=== PATIENT | male | born 1985 ===

== ENCOUNTER 2019-02-07 17:25 | Outpatient (REF) | payer MEDICAID, SELFPAY ==
[2019-02-07 22:12] LABS: Abs Immature Grans 0.01 k/cumm (0.0-0.09); Absolute Basophil Count 0.03 k/cumm (0.0-0.2); Absolute Eosinophil Count 0.47 k/cumm (0.0-0.7); Absolute Lymphocyte Count 2.55 k/cumm (1.2-3.4); Absolute Monocyte Count 0.55 k/cumm (0.11-0.7); Absolute Neutrophil Count 2.96 k/cumm (1.2-6.7); Basophils % 0.5; Eosinophils % 7.2; HGB 14.1 g/dL (13.5-17.5); Immature Grans % 0.2; Lymphocytes % 38.8; Mean Corp. HGB Concentration 32.8 g/dL (32.0-36.0); Mean Corpuscular Hemoglobin 30.7 pg (27.0-33.0); Mean Corpuscular Volume 93.7 fL (80-95); Mean Platelet Volume 10.6 fL (8.0-11.0); Monocytes % 8.4; Neutrophils % 44.9; Platelet Count 191 x1000/uL (130-400); RBC 4.59 m/cumm (4.50-6.00); RBC Distribution Width 13.6 % (11.8-14.1); White Blood Cell Count 6.57 k/cumm (4.4-10.8)
[2019-02-07 23:16] LABS: Vitamin D 25 Total 31.9 ng/ml (30-100)
[2019-02-07 23:22] LABS: ALT 36 U/L (16-63); AST 25 U/L (15-37); Albumin 4.5 g/dL (3.4-5.0); Alkaline Phosphatase 69 U/L (46-116); Anion Gap 9.7 mmol/L (3-11); BUN 13 mg/dL (7-18); Bilirubin, Total 1.1 mg/dL (0.2-1.0); CO2 29.3 mmol/L (21.0-32.0); CREATININE 0.91 mg/dL (0.70-1.30); Calcium 9.1 mg/dL (8.5-10.1); Chloride 102 mmol/L (98-107); Folate 10.9 ng/mL (8.6-20.0); Glucose 78 mg/dL (70-100); Potassium 3.9 mmol/L (3.5-5.1); Sodium 141 mmol/L (136-145); Total Protein 7.8 g/dL (6.4-8.2); Vitamin B12 427 pg/mL (193-986)
== END 2019-02-07 17:45 ==
LOC: NCHCN 17:25
PROVIDERS: Visit Provider Family Medicine
DX: F10.10 Alcohol abuse, uncomplicated (principal); F41.9 Anxiety disorder, unspecified; F34.1 Dysthymic disorder
CPT/HCPCS: 80053; 82306; 82607; 82746; 83735; 84443; 85025

== ENCOUNTER 2019-09-26 19:25 | Outpatient (REF) | payer MEDICAID, SELFPAY ==
[2019-09-26 20:34] LABS: HCT 42.7 % (40.0-50.0); HGB 14.5 g/dL (13.5-17.5); Mean Corpuscular Hemoglobin 31.2 pg (27.0-33.0); Mean Corpuscular Volume 91.8 fL (80-95); Mean Platelet Volume 10.6 fL (8.0-11.0); Platelet Count 227 x1000/uL (130-400); RBC 4.65 m/cumm (4.50-6.00); RBC Distribution Width 13.2 % (11.8-14.1); White Blood Cell Count 8.11 k/cumm (4.4-10.8)
[2019-09-26 21:07] LABS: ALT 25 U/L (16-63); AST 23 U/L (15-37); Albumin 4.1 g/dL (3.4-5.0); Alkaline Phosphatase 77 U/L (46-116); Anion Gap 12.3 mmol/L (3-11); BUN 10 mg/dL (7-18); Bilirubin, Total 1.1 mg/dL (0.2-1.0); CO2 23.7 mmol/L (21.0-32.0); CREATININE 0.95 mg/dL (0.70-1.30); Calcium 9.2 mg/dL (8.5-10.1); Chloride 103 mmol/L (98-107); Folate 18.5 ng/mL (8.6-20.0); Glucose 93 mg/dL (74-106); Sodium 139 mmol/L (136-145); Total Protein 7.5 g/dL (6.4-8.2)
== END 2019-09-26 19:45 ==
LOC: NCHCN 19:25
PROVIDERS: Visit Provider Family Medicine
DX: R22.32 Localized swelling, mass and lump, left upper limb (principal); F10.10 Alcohol abuse, uncomplicated
CPT/HCPCS: 80053; 85027; 82746

== ENCOUNTER 2020-10-15 18:24 | Outpatient (REF) | payer MEDICAID, SELFPAY ==
[2020-10-15 21:22] LABS: Abs Immature Grans 0.01 10^3/uL (0.0-0.06); Absolute Basophil Count 0.03 10^3/uL (0.0-0.2); Absolute Eosinophil Count 0.28 10^3/uL (0.0-0.7); Absolute Lymphocyte Count 2.16 10^3/uL (1.2-3.4); Absolute Monocyte Count 0.53 10^3/uL (0.1-0.8); Absolute Neutrophil Count 4.02 10^3/uL (1.2-6.7); Basophils % 0.4; HCT 41.3 % (40.0-50.0); Immature Grans % 0.1; Lymphocytes % 30.7; MCH 31.3 pg (27.0-33.0); MCHC 33.9 % (32.0-36.0); MCV 92.4 fL (80-95); MPV 10.8 fL (8.0-11.0); Monocytes % 7.5; Neutrophils % 57.3; Nucleated RBC 0 %; Platelet Count 182 10^3/uL (130-400); RBC 4.47 10^6/uL (4.36-5.78); RDW 13.9 % (11.8-14.1); RDW-SD 47.4 fL; WBC 7.03 10^3/uL (4.4-10.8)
[2020-10-15 21:40] LABS: ALT 24 U/L (16-63); AST 18 U/L (15-37); Albumin 4.3 g/dL (3.4-5.0); Alkaline Phosphatase 68 U/L (46-116); Anion Gap 8.1 mmol/L (3-11); BUN 10 mg/dL (7-18); Bilirubin, Total 1.2 mg/dL (0.2-1.0); CO2 29.9 mmol/L (21.0-32.0); CREATININE 0.9 mg/dL (0.70-1.30); Calcium 9.3 mg/dL (8.5-10.1); Chloride 104 mmol/L (98-107); Glucose 90 mg/dL (74-106); Potassium 3.8 mmol/L (3.5-5.1); Sodium 142 mmol/L (136-145); TSH (W/Ref FT4) 2.26 uIU/mL (0.36-3.74); Total Protein 7.5 g/dL (6.4-8.2)
[2020-10-16 16:45] LABS: Prolactin 6.3 ng/mL (2.1-17.7)
[2020-10-18 09:30] LABS: HIV-1/2 Ag & Ab Screen Negative (Negative)
== END 2020-10-15 18:25 | disposition home or self-care (01) ==
LOC: NCHCN 18:24
PROVIDERS: Visit Provider Family Medicine
DX: Z11.3 Encounter for screening for infections with a predominantly sexual mode of transmission (principal); N64.52 Nipple discharge; R22.32 Localized swelling, mass and lump, left upper limb; F10.10 Alcohol abuse, uncomplicated
CPT/HCPCS: 80053; 87389; 84146; 84443; 85025

== ENCOUNTER 2021-12-26 15:04 | Outpatient (REF) | payer MEDICAID, SELFPAY ==
[2021-12-26 16:36] LABS: ALT 49 U/L (16-63); AST 56 U/L (15-37); Albumin 4.1 g/dL (3.4-5.0); Alkaline Phosphatase 82 U/L (46-116); Anion Gap 8.2 mmol/L (3-11); BUN 10 mg/dL (7-18); Bilirubin, Total 0.5 mg/dL (0.2-1.0); CO2 30.8 mmol/L (21.0-32.0); CREATININE 0.8 mg/dL (0.70-1.30); Calcium 9.8 mg/dL (8.5-10.1); Chloride 101 mmol/L (98-107); Estimated GFR 118.36 (mL/min/1.73m2); Glucose 93 mg/dL (74-106); Potassium 4.6 mmol/L (3.5-5.1); Sodium 140 mmol/L (136-145)
== END 2021-12-26 15:05 | disposition home or self-care (01) ==
LOC: NCHCN 15:04
PROVIDERS: Visit Provider Family Medicine
DX: F10.10 Alcohol abuse, uncomplicated (principal)
CPT/HCPCS: 80053

== ENCOUNTER 2024-09-14 09:27 | Outpatient (REF) | payer MEDICAID, SELFPAY ==
[2024-09-14 16:06] LABS: ALT 30 U/L (16-63); AST 29 U/L (15-37); Albumin 4.6 g/dL (3.4-5.0); Alkaline Phosphatase 93 U/L (46-116); Anion Gap 9.8 mmol/L (3-11); BUN 9 mg/dL (7-18); Bilirubin, Total 0.6 mg/dL (0.2-1.0); CO2 29.2 mmol/L (21.0-32.0); CREATININE 0.9 mg/dL (0.70-1.30); Calcium 9.4 mg/dL (8.5-10.1); Chloride 100 mmol/L (98-107); Estimated GFR 112.81 (mL/min/1.73m2); Glucose 110 mg/dL (74-106); Potassium 4.5 mmol/L (3.5-5.1); Sodium 139 mmol/L (136-145); Total Protein 8.7 g/dL (6.4-8.2)
[2024-09-15] LABS: Hepatitis C Ab w Rflx HCV PCR Negative (Negative)
[2024-09-15 00:01] LABS: HIV-1/2 Ag & Ab Screen Negative (Negative)
[2024-09-15 11:51] LABS: Syphilis Serology (RPR) Negative (Negative)
[2024-09-15 12:47] LABS: Chlamydia Result Negative (Negative); GC Result Negative (Negative)
== END 2024-09-14 09:28 | disposition home or self-care (01) ==
LOC: NCHCN 09:27
PROVIDERS: Visit Provider Family Medicine
DX: F10.20 Alcohol dependence, uncomplicated (principal); Z11.3 Encounter for screening for infections with a predominantly sexual mode of transmission
CPT/HCPCS: 80053; 86803; 87389; 87491; 87591; 86592

== ENCOUNTER 2025-02-06 20:40 | Outpatient (REF) | payer MEDICAID, SELFPAY ==
[2025-02-06 21:13] LABS: Hemoglobin A1C 5.7 % (<5.7)
[2025-02-06 21:15] LABS: ALT 97 U/L (16-63); AST 95 U/L (15-37); Albumin 4.5 g/dL (3.4-5.0); Alkaline Phosphatase 101 U/L (46-116); Anion Gap 9.6 mmol/L (3-11); BUN 16 mg/dL (7-18); Bilirubin, Total 3.7 mg/dL (0.2-1.0); CO2 29.4 mmol/L (21.0-32.0); Calcium 10.0 mg/dL (8.5-10.1); Chloride 97 mmol/L (98-107); Glucose 115 mg/dL (74-106); Potassium 4.2 mmol/L (3.5-5.1); Sodium 136 mmol/L (136-145); Total Protein 8.5 g/dL (6.4-8.2); Uric Acid 4.5 mg/dL (3.5-7.2)
[2025-02-06 21:51] LABS: Vitamin D 25 Total 43 ng/mL (30-100)
== END 2025-02-06 20:41 | disposition home or self-care (01) ==
LOC: NCHCN 20:40
PROVIDERS: Visit Provider Family Medicine
DX: M79.674 Pain in right toe(s) (principal); E55.9 Vitamin D deficiency, unspecified; Z13.1 Encounter for screening for diabetes mellitus; F10.20 Alcohol dependence, uncomplicated
CPT/HCPCS: 80053; 82306; 83036; 84550